=== PATIENT | male | born 1965 | race Caucasian/White ===

== ENCOUNTER → 2017-08-12 | Outpatient (CLI) | payer OTHER | LOC: RAD 09:34 | DX: M77.32 Calcaneal spur, left foot (principal); M77.31 Calcaneal spur, right foot ==

== ENCOUNTER 2017-10-08 14:00 | Outpatient (RCR) | payer OTHER | END 2017-10-08 14:30 | disposition home or self-care (01) | LOC: PT 14:00 | DX: M62.461 Contracture of muscle, right lower leg (principal); M76.61 Achilles tendinitis, right leg ==